=== PATIENT | male | born 1985 | race American Indian/Alaskan Native ===

== ENCOUNTER 2017-09-30 17:13 | Emergency (ER) | payer MEDICAID ==
[2017-09-30 17:29] VITALS: BP 131/85
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
== END 2017-09-30 17:50 | disposition home or self-care (01) ==
LOC: JP.ED 17:13
DX: S00.33XA Contusion of nose, initial encounter (principal); S00.03XA Contusion of scalp, initial encounter; S10.93XA Contusion of unspecified part of neck, initial encounter; F17.210 Nicotine dependence, cigarettes, uncomplicated; Y04.0XXA Assault by unarmed brawl or fight, initial encounter
CPT/HCPCS: 99283

== ENCOUNTER 2017-10-01 17:48 | Emergency (ER) | payer MEDICAID ==
[2017-10-01 18:14] VITALS: BP 130/73
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
== END 2017-10-01 18:42 | disposition home or self-care (01) ==
LOC: JP.ED 17:48
DX: S00.83XD Contusion of other part of head, subsequent encounter (principal); S00.33XD Contusion of nose, subsequent encounter; Z76.5 Malingerer [conscious simulation]; X58.XXXD Exposure to other specified factors, subsequent encounter
CPT/HCPCS: 99283